=== PATIENT | female | born 1990 | race Caucasian/White ===

== ENCOUNTER 2021-07-09 22:58 | Emergency (ER) | payer OTHER ==
[2021-07-10] MEDS ORDERED: METRONIDAZOLE500 MG PO (02:15)
[2021-07-10] MEDS ORDERED: BACTRIM DS TAB1 EACH PO (02:15)
== END 2021-07-10 02:33 | disposition home or self-care (01) ==
LOC: FER 22:58
DX: S61.452A Open bite of left hand, initial encounter (principal); F17.290 Nicotine dependence, other tobacco product, uncomplicated; S61.412A Laceration without foreign body of left hand, initial encounter; W54.0XXA Bitten by dog, initial encounter